=== PATIENT | female | born 1945 | race Caucasian/White ===

== ENCOUNTER → 2022-06-05 10:34 | Outpatient (CLI) | payer MEDICARE, SELFPAY ==
[2022-06-05 11:55] LABS: COVID19 -Nasal RAPID Negative (Negative)
== END ==
PROVIDERS: Family Provider Otolaryngology Facial Plastic Surgery; PCP Internal Medicine; Visit Provider Surgery
DX: Z20.822 Contact with and (suspected) exposure to COVID-19 (principal); Z01.812 Encounter for preprocedural laboratory examination
CPT/HCPCS: 87635; C9803

== ENCOUNTER 2022-06-08 13:30 | Day surgery (SDC) | payer MEDICARE, SELFPAY ==
--- NOTE | 2022-06-08 | PATH_ITS ---
[facility] Accession Number: [id number] . 01 Material submitted: . PART A: duodenum - DUODENUM BIOPSY PART B: esophagus - SCHATZKI'S RING BIOPSY PART C: stomach - ANTRUM BIOPSY . 01 Diagnosis: A. Duodenum, Biopsy: Duodenal mucosa with no diagnostic abnormality. Negative for active inflammation, features of sprue, dysplasia, or malignancy. . B. 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 No dysplasia or malignancy. See comment. . C. Antrum, Biopsy: Gastric mucosa with ulcer. No Helicobacter pylori organisms identified on immunohistohemical evaluation. No intestinal metaplasia, dysplasia, or malignancy. . [facility] 06/10/2022 1237 Local . 01 Comment: B. 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 Correlation with the clinical endoscopic appearance is needed for further evaluation. . . 01 Electronically signed: . Justa Cano MD, Pathologist NPI- [id number] . 01 Gross description: . Part A: DUODENUM BIOPSY: Received in formalin are 4 fragment(s) of wang, soft tissue measuring 0.3 x 0.2 x 0.2 cm to 0.2 x 0.1 x 0.1 cm submitted entirely in 1 cassette(s) Part B: SCHATZKI'S RING BIOPSY: Received in formalin is 1 fragment(s) of wang, soft tissue measuring 0.4 x 0.2 x 0.2 cm submitted entirely in 1 cassette(s) Part C: ANTRUM BIOPSY: Received in formalin are 2 fragment(s) of wang, soft tissue measuring 0.3 x 0.3 x 0.1 cm to 0.3 x 0.2 x 0.1 cm submitted entirely in 1 cassette(s) /CPE 06/09/2022 0640 Local . 01 Microscopic: . C. An immunohistochemical stain was performed to evaluate for Helicobacter organisms and is negative. The control stain showed appropriate reactivity. . * This test was developed and its performance characteristics determined by [employer]. It has not been cleared or approved by the U.S. Food and Drug Administration. The FDA has determined that such clearance or approval is not necessary. This test is used for clinical purposes. It should not be regarded as investigational or for research. . 01 Pathologist provided ICD-10: K22.70, K25.0, K21.9 . 01 CPT . 642196, 416949, 842893, U55450 Specimen Comment: A courtesy copy of this report has been sent to [phone] Performed at: 01 [facility] [address] [place] [address], [place], [place] [id number] MD Rock Mckeon MD Phone: [phone]
[2022-06-08 13:58] VITALS: BP 137/81; PULSE 83; RESP 16; TEMP 35.7; O2SAT 100; BMI 22.4
[2022-06-08] MEDS: SODIUM CHLORIDE 0.9% 1,000 ML 84 ML IV (14:07)
--- NOTE | 2022-06-08 14:49 | PM.HP.1 ---
History of Present Illness History of Present Illness Date Patient Seen: 06/08/22 Time Patient Seen: 14:49 Chief complaint: SDC Narrative: I reviewed my recent office note May 26. No significant changes. Patient History Family & Social History Social History: household members spouse Tobacco & Substance use: Smoking Status Never smoker alcohol intake current alcohol intake frequency 0-2 drinks per day Substance Use Type does not use Meds Home Medications and Allergies Home Medications Medication Instructions Recorded Confirmed Type latanoprost 0.005 % eye drops 1 drp EYE-BOTH DAILY 06/08/22 06/08/22 History Allergies Allergy/AdvReac Type Severity Reaction Status Date / Time alendronate sodium Allergy Verified 06/08/22 13:55 [From Fosamax] Meperidine AdvReac Unknown Uncoded 01/26/18 11:57 Review of Systems Review of Systems ROS: Yes All systems reviewed with the patient and are negative except as otherwise documented Exam Vital Signs (past 8 hours): - 06/08/22 13:58 Temperature 96.3 F L Pulse Rate 83 Respiratory Rate 16 Blood Pressure 137/81 Pulse Oximetry 100 Oxygen Delivery Method Room Air Oxygen Flow Rate 0 Oxygen Delivery Method Room Air Oxygen Flow Rate 0 Const General: cooperative HENMT Head: normal to inspection Eyes General: appearance normal, both eyes and all related structures Neck Neck: normal visual inspection Chest Chest: normal inspection of the chest Resp Effort & Inspection: normal respiratory effort Cardio Rate: regular rate GI Inspection: normal to inspection Skin General: no rashes or lesions noted Neuro General: patient alert and patient awake Extrem General: normal to inspection and no pedal edema Psych Appearance: grossly normal Assessment & Plan Assessment & Plan narrative: A 6-year-old with a remote history of poorly controlled reflux. Recent history of abnormal celiac genetic markers. EGD for small bowel biopsies and evaluation of the GE junction region is pursued today. Time Spent With Patient Critical Care time: I spent a total of [] minutes of critical care time on this patient's care today; this time is exclusive of procedural time.
--- NOTE | 2022-06-08 14:51 | PM.PREOP ---
Pre-operative Note COVID-19 COVID-19 status: Negative Result date/Date tested (Pos, Neg/Pending): 06/05/22 Criteria for continued procedure: Possibility delay results in more complex future surgery or treatment Interval Note History & Physical reviewed/Exam performed by Physician: Yes Changes to H&P: No ASA Class (for procedural sedation): II
--- NOTE | 2022-06-08 15:32 | P.OP.EGD_ITS ---
Operative Date/Time/Diagnoses Date of procedure: 06/08/22 Time of procedure: 15:34 Pre-op diagnosis: Genetic testing compatible with celiac. (negative tissue transglutaminase assay) History of remote poorly-controlled GERD x 6 years Post-op diagnosis: same Procedure & Clinicians Study performed: EGD with biopsies Same procedure as scheduled: Yes Indications: Genetic testing compatible with celiac. (negative tissue transglutaminase assay) History of remote poorly-controlled GERD x 6 years Surgeon: Niall Doyle Procedure Notes SCOAP/Timeout: Done Procedure in detail: After the risks and benefits were explained, written and verbal informed consent was obtained. The patient was brought into the procedure room and placed into the left lateral decubitus position. Please see nurse banquet line cook notes for sedation details. The scope was introduced into the mouth through the bite block and advanced under direct visualization to the 2nd portion of the duodenum. The scope was slowly withdrawn carefully examining the mucosa for any defects or lesions. Retroflexed views were accomplished in the stomach. The stomach was decompressed, the scope was then removed from the patient who tolerated the procedure well. Complications: none Impression: 1. Duodenum: No mucosal pathology was appreciated from the bulb through to the 2nd portion. Biopsies were taken from D2 for exclusion of sprue. 2. Stomach: Retroflexed views of the LES disclosed a hiatal hernia. Otherwise there was a macronodular appearance to the pre-pyloric region. This was targeted for biopsies and exclusion of H pylori infection. 3. Esophagus: The squamocolumnar junction correlated with the top of the gastric folds. The GEJ was at about 38 cm from the incisors. Subtle sliding hiatal hernia was noted. A subtle nonobstructing Schatzki's ring was additionally noted and I therefore took a disruptive biopsy out of the ring with cold forceps. There was no evidence of any active inflammation in the distal esophagus. The distal esophagus was somewhat tortuous but no additional mucosal pathology appreciated throughout. In the mid to proximal esophagus a pulsating indentation consistent with the location of the aortic arch was quite prominent and obvious. Endoscopic diagnosis 1. Nodular gastropathy-biopsied 2. Small sliding hiatal hernia 3. Nonobstructing Schatzki's ring status post disruptive biopsy Post-procedure Plan for aftercare: 1. Await histopathology. 2. Follow-up in primary care as before 3. Follow-up GI clinic any time as needed. Disposition: PACU
[2022-06-08 15:35] VITALS: BP 118/65; PULSE 74; RESP 16; TEMP 36.1; O2SAT 96
[2022-06-08 15:40] VITALS: BP 128/60; PULSE 70; RESP 16; O2SAT 98
[2022-06-08 15:45] VITALS: BP 137/71; PULSE 76; RESP 16; O2SAT 97
[2022-06-08 15:50] VITALS: BP 135/70; PULSE 65; RESP 18; TEMP 36.6; O2SAT 98
== END 2022-06-08 16:02 | disposition home or self-care (01) ==
PROVIDERS: Family Provider Otolaryngology Facial Plastic Surgery; PCP Internal Medicine; Referring Provider Internal Medicine Gastroenterology; Visit Provider Internal Medicine Gastroenterology
PROC: 0DJ08ZZ Inspection of Upper Intestinal Tract, Via Natural or Artificial Opening Endoscopic (ICD-10-PCS; CPT 43235; principal; 2022-06-08 14:30)
DX: K21.9 Gastro-esophageal reflux disease without esophagitis (principal); K22.2 Esophageal obstruction; K44.9 Diaphragmatic hernia without obstruction or gangrene; K31.9 Disease of stomach and duodenum, unspecified; K22.70 Barrett's esophagus without dysplasia; K25.9 Gastric ulcer, unspecified as acute or chronic, without hemorrhage or perforation
CPT/HCPCS: 43239; J2704; J3010

== ENCOUNTER 2023-03-31 11:17 | Day surgery (SDC) | payer MEDICARE, SELFPAY ==
--- NOTE | 2023-03-31 | PATH_ITS ---
[facility] Accession Number: [id number] No. of containers..02 Tissue . 01 Material submitted: . PART A: gastrointestinal site - RANDOM GASTRIC POLYP PART B: gastrointestinal site - ANTRAL POLYP . 01 Diagnosis: A. Random Gastric Polyp, Biopsy: Oxyntic mucosa with mild foveolar hyperplasia. Negative for Helicobacter by immunohistochemistry. Negative for intestinal metaplasia. Negative for dysplasia and malignancy. Additional levels were examined. . B. Stomach, Antral Polyp, Biopsy: Inflamed gastric hyperplastic polyp. Negative for Helicobacter by immunohistochemistry. Negative for intestinal metaplasia. Negative for dysplasia and malignancy. . [facility] 04/07/2023 1446 Local . 01 Electronically signed: . Mee Padilla MD, Pathologist NPI- [id number] . 01 Gross description: . Part A: RANDOM GASTRIC POLYP: Received in formalin is 1 fragment(s) of wang, soft tissue measuring 0.3 x 0.2 x 0.2 cm submitted entirely in 1 cassette(s) Part B: ANTRAL POLYP: Received in formalin is 1 fragment(s) of wang, soft tissue measuring 0.2 x 0.2 x 0.2 cm submitted entirely in 1 cassette(s) /[place] 04/05/2023 1943 Local . 01 Microscopic: . A. An immunohistochemical stain was performed to evaluate for Helicobacter organisms and is negative. The control stain showed appropriate reactivity. . B. An immunohistochemical stain was performed to evaluate for Helicobacter organisms and is negative. The control stain showed appropriate reactivity. . * This test was developed and its performance characteristics determined by [employer]. It has not been cleared or approved by the U.S. Food and Drug Administration. The FDA has determined that such clearance or approval is not necessary. This test is used for clinical purposes. It should not be regarded as investigational or for research. . 01 Pathologist provided ICD-10: K31.7 . 01 CPT . 751173, 664325, S10880 Specimen Comment: A courtesy copy of this report has been sent to [phone] Performed at: 01 [facility] [address] [place] [id number] MD Rock Mckeon MD Phone: [phone]
[2023-03-31 11:39] VITALS: BMI 21.1
[2023-03-31 11:48] VITALS: BP 147/89; PULSE 86; RESP 18; TEMP 36.6; O2SAT 99
--- NOTE | 2023-03-31 13:02 | PM.OP.EGD ---
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 The video upper scope was placed into the oropharynx and with the patient's help swallowed into the esophagus the esophagus stomach and duodenum were carefully examined. On withdrawal, retroflexed view the GE junction was performed. The scope was removed. The patient tolerated procedure well. Blood loss none Complications none Sedation mac Findings 1. Approximately 5 cm semi soft but mobile lesion that is either submucosal or more likely extraluminal. This was located in a posterior to left-sided location at 25 cm. 2. Completely normal and regular squamocolumnar junction 3. Pre-pyloric and antral nodular gastritis biopsies taken in nonnodular mucosa to rule out Helicobacter 4. One polypoid lesion much more polypoid than the others. This had a intensely credit administration specialist to it. Biopsies taken. 5. Normal duodenal bulb and sweep Patient will follow up via Dr. Syeda montgomery office for further recommendations all but endoscopic ultrasound should be considered of this lesion.
[2023-03-31 13:05] VITALS: BP 109/64; PULSE 77; RESP 18; TEMP 36.3; O2SAT 97
[2023-03-31 13:10] VITALS: BP 106/62; PULSE 76; RESP 15; O2SAT 95
[2023-03-31 13:15] VITALS: BP 126/62; PULSE 83; RESP 13; O2SAT 94
[2023-03-31 13:20] VITALS: BP 128/74; PULSE 72; RESP 12; TEMP 36.6; O2SAT 97
[2023-03-31 13:26] VITALS: BP 120/72; PULSE 66; RESP 17; TEMP 36.6; O2SAT 98
== END 2023-03-31 13:39 | disposition home or self-care (01) ==
PROVIDERS: Family Provider Otolaryngology Facial Plastic Surgery; PCP Internal Medicine; Referring Provider Internal Medicine Gastroenterology; Visit Provider Internal Medicine Gastroenterology
PROC: 0DJ08ZZ Inspection of Upper Intestinal Tract, Via Natural or Artificial Opening Endoscopic (ICD-10-PCS; CPT 43235; principal; 2023-03-31 12:30)
DX: K29.60 Other gastritis without bleeding (principal); K31.7 Polyp of stomach and duodenum
CPT/HCPCS: 43239; J2704